=== PATIENT | male | born 1960 | race Caucasian/White ===

== ENCOUNTER → 2016-06-17 | Outpatient (CLI) | payer OTHER ==
[2016-06-17 19:31] LABS: Basophils # (A) 0.1 k/uL (0-0.2); Basophils % (A) 1 %; CH 30.5; CHCM 34.3; Eosinophils # (A) 0.1 k/uL (0-0.7); Eosinophils % (A) 2 %; HCT 43.7 % (39.0-53.0); HDW 2.54; HGB 14.8 gm/dL (13.0-17.5); Luc # (Auto) 0.08; Luc % (Auto) 2; Lymphocytes # (A) 1.2 k/uL (1.0-4.8); Lymphocytes % (A) 26 %; MCH 30.3 pg (25.0-35.0); MCHC 33.9 g/dL (31.0-37.0); MCV 89.2 fL (80.0-100.0); Mean Platelet Volume 8.3; Monocytes # (A) 0.3 k/uL (0-1.0); Monocytes % (A) 6 %; Neutrophils # (A) 2.9 k/uL (1.3-7.7); Neutrophils % (A) 63 %; WBC 4.7 k/uL (3.8-10.6); WBC (Perox) 4.73
[2016-06-17 19:33] LABS: ALT 27 U/L (21-72); AST 18 U/L (17-59); Alkaline Phosphatase 73 U/L (38-126); Anion Gap 11 mmol/L; Blood Urea Nitrogen 21 mg/dL (9-20); Calcium 9.7 mg/dL (8.4-10.2); Carbon Dioxide 27 mmol/L (22-30); Chloride 105 mmol/L (98-107); Cholesterol 184 mg/dL (<200); Glucose 100 mg/dL (74-99); HDL Cholesterol 51 mg/dL (40-60); Non-African American GFR(MDRD) >60 (>60 ml/min/1.73 sqM); Sodium 143 mmol/L (137-145); Total Bilirubin 0.8 mg/dL (0.2-1.3); Total Protein 6.8 g/dL (6.3-8.2); Triglycerides 107 mg/dL (<150)
== END | disposition home or self-care (01) ==
LOC: MMGSC 12:21
PROVIDERS: ATTEND Family Medicine
DX: Z00.00 Encounter for general adult medical examination without abnormal findings (principal); Z12.5 Encounter for screening for malignant neoplasm of prostate
CPT/HCPCS: 84439; 80053; 80061; 84443; 85025; 36415; G0103

== ENCOUNTER → 2019-06-22 | Outpatient (CLI) | payer OTHER ==
--- NOTE | 2019-06-22 12:31 | CONS ---
CONSULTATION DATE OF SERVICE: 06/22/2019 A 58-year-old gentleman who has [facility] for symptoms of tiredness and excessive daytime sleepiness, started recently. HISTORY OF PRESENT ILLNESS/SLEEP-WAKE EVALUATION: Patient's usual sleep schedule on working days from 10:30 pm until 5:30 a.m., on weekends from 10:30 pm until 6 to 7 a.m. Usually no problems with falling asleep, although he has TV set in bedroom. He usually sleeps on the side position by himself. He knows that he snores. He wakes up from sleep once with nocturia. Nobody ever told about episodes of stopped breathing during the sleep. During the day, he may feel sleepy and take one nap around 4 to 6 pm, but ready to take naps in another time. Simpson Sleepiness Scale increased to 11. PAST MEDICAL HISTORY: Basically negative. PAST SURGICAL HISTORY: Right wrist surgery for ganglion cyst in 2016, right thumb fracture in 2009. MEDICATIONS: None. SOCIAL HISTORY: Positive for smoking up to 2 packs a day for 27 years. Quit 20 years ago. Alcohol consumption rarely. FAMILY HISTORY: Diabetes mellitus, hypertension. REVIEW OF SYSTEMS: Tiredness and sleepiness. Sometimes wakes up with snoring. PHYSICAL EXAM: gentleman without distress, BP 121/68, HR 62, RR 15, height 5, 6, weight 173, body mass index 288.0, temperature 98.6, oxygen saturation at room air 99%. OROPHARYNX: Extremely low position of soft palate. Mallampati 4, restriction of nasal breathing. NECK: 15-3/4 inches in circumference. LUNGS: Clear to percussion and to auscultation. Good air exchange. No wheezing or rhonchi. HEART: S1, S2 regular. No murmurs, gallops, or rubs. ABDOMEN: Soft and nontender. Bowel sounds are present. No organomegaly appreciated. EXTREMITIES: No clubbing or cyanosis. SPECIAL EDUCATION SECRETARY: Awake, alert, and oriented X3. Cranial nerves 2 to 7 intact. There is no fasciculation or atrophy. noted. No focal deficits observed. IMPRESSION: 1. Snoring, awakenings from sleep with nocturia, extremely low position of soft palate. Restriction of nasal breathing; possible obstructive sleep apnea-hypopnea syndrome. 2. Sleepiness. Simpson Sleepiness Scale increased to 11. Patient is ready to take naps several times during the day. 3. Status post right wrist surgery for ganglion cyst. 4. Status post right arm fracture. PLAN: 1. Polysomnography for evaluation of patient's breathing during sleep. 2. CPAP/BiPAP titration if sleep study confirms obstructive sleep apnea-hypopnea syndrome. 3. Preferable position during sleep on the side. 4. No driving if patient feels any sleepiness. 5. I will see patient for follow up visit to explain results of testing and following plan. 6. Multiple sleep latency test if sleep study will be negative for obstructive sleep apnea-hypopnea syndrome. Thank you very much for referring this patient for consultation. Sincerely, Liang Pérez MD, PhD, FAASM Diplomat of [employer] Organizational Development Consultant of [facility] [place] [id number] / IJN: [id number] /
== END | disposition home or self-care (01) ==
LOC: SLEEP 10:19
PROVIDERS: ATTEND Internal Medicine
DX: G47.8 Other sleep disorders (principal); R35.1 Nocturia; R06.83 Snoring; R93.89 Abnormal findings on diagnostic imaging of other specified body structures; Z87.891 Personal history of nicotine dependence; Z79.899 Other long term (current) drug therapy; Z98.890 Other specified postprocedural states; Z87.81 Personal history of (healed) traumatic fracture
CPT/HCPCS: 99211